=== PATIENT | male | born 1985 | race African-American/Black ===

== ENCOUNTER 2019-08-11 04:50 | Inpatient (IN) | payer MEDICAID ==
[~2019-08-11] VITALS: Ht 175.3 cm; Wt 66.5 kg
[2019-08-11] MEDS ORDERED: HALOPERIDOL 5 MG TABLET PO PRN (10:00)
[2019-08-11] MEDS ORDERED: ZOLPIDEM TARTRATE 10 MG TABLET PO PRN (10:00)
[2019-08-11] MEDS ORDERED: LORazepam 2 MG TABLET PO PRN (10:00)
[2019-08-11] MEDS ORDERED: CloNIDine HCL 0.1 MG TABLET PO PRN (10:30)
[2019-08-11] MEDS ORDERED: DOCUSATE SODIUM 100 MG CAPSULE PO PRN (10:30)
[2019-08-11] MEDS ORDERED: ONDANSETRON HCL 4 MG TABLET PO PRN (10:30)
[2019-08-11] MEDS ORDERED: PETROLATUM,WHITE 28 GM JELLY TP PRN (10:30)
[2019-08-11] MEDS ORDERED: GuaiFENesin/D-METHORPHAN [SUGAR-FREE] 200-20MG/10 ML SYRUP UDCUP PO PRN (10:30)
[2019-08-11] MEDS ORDERED: MAGNESIUM HYDROXIDE SUSPENSION 30 ML UDCUP PO PRN (10:30)
[2019-08-11] MEDS ORDERED: IBUPROFEN 400 MG TABLET PO PRN (10:30)
[2019-08-11] MEDS ORDERED: ACETAMINOPHEN 325 MG TABLET PO PRN (10:30)
[2019-08-11] MEDS ORDERED: MAG HYDROX/AL HYDROX/SIMETH ES 30 ML SUSPENSION UDCUP PO PRN (10:30)
[2019-08-11] MEDS ORDERED: ALBUTEROL SULFATE HFA 90 MCG/PUFF 8 GM INHALER IH PRN (10:30)
[2019-08-11] MEDS ORDERED: LOPERAMIDE HCL 2 MG CAPSULE PO PRN (10:30)
[2019-08-11] MEDS ORDERED: NICOTINE 14 MG/24 HOUR PATCH TD PRN (10:30)
[2019-08-11 12:15] VITALS: BP 115/62
[2019-08-11 16:00] VITALS: BP 122/76
[2019-08-12] MEDS ORDERED: DOCUSATE SODIUM 100 MG CAPSULE PO PRN (08:00)
[2019-08-12] MEDS ORDERED: IBUPROFEN 400 MG TABLET PO PRN (08:00)
[2019-08-12] MEDS ORDERED: MAGNESIUM HYDROXIDE SUSPENSION 30 ML UDCUP PO PRN (08:00)
[2019-08-12] MEDS ORDERED: ONDANSETRON HCL 4 MG TABLET PO PRN (08:00)
[2019-08-12] MEDS ORDERED: ALBUTEROL SULFATE HFA 90 MCG/PUFF 8 GM INHALER IH PRN (08:00)
[2019-08-12] MEDS ORDERED: PETROLATUM,WHITE 28 GM JELLY TP PRN (08:00)
[2019-08-12] MEDS ORDERED: CloNIDine HCL 0.1 MG TABLET PO PRN (08:00)
[2019-08-12] MEDS ORDERED: LOPERAMIDE HCL 2 MG CAPSULE PO PRN (08:00)
[2019-08-12] MEDS ORDERED: ACETAMINOPHEN 325 MG TABLET PO PRN (08:00)
[2019-08-12] MEDS ORDERED: GuaiFENesin/D-METHORPHAN [SUGAR-FREE] 200-20MG/10 ML SYRUP UDCUP PO PRN (08:00)
[2019-08-12] MEDS ORDERED: MAG HYDROX/AL HYDROX/SIMETH ES 30 ML SUSPENSION UDCUP PO PRN (08:00)
[2019-08-12] MEDS ORDERED: NICOTINE 14 MG/24 HOUR PATCH TD PRN (08:00)
[2019-08-12] MEDS: OLANZapine 5 MG TABLET PO SCH ×2 (10:30→20:45)
[2019-08-12] MEDS: SERTRALINE HCL 50 MG TABLET PO SCH (10:30)
[2019-08-12 16:35] VITALS: BP 121/67
[2019-08-13 05:48] VITALS: BP 143/68
[2019-08-13 08:29] VITALS: BP 121/74
[2019-08-13] MEDS: OLANZapine 5 MG TABLET PO SCH ×2 (09:43→20:50)
[2019-08-13] MEDS: SERTRALINE HCL 50 MG TABLET PO SCH (09:43)
[2019-08-13] MEDS ORDERED: TraMADol HCL 50 MG TABLET PO PRN (10:15)
[2019-08-13 16:24] VITALS: BP 117/60
[2019-08-14 05:22] VITALS: BP 116/76
[2019-08-14] MEDS: OLANZapine 5 MG TABLET PO SCH ×2 (09:26→21:00)
[2019-08-14] MEDS: SERTRALINE HCL 50 MG TABLET PO SCH (09:26)
[2019-08-14 09:29] VITALS: BP 115/71
[2019-08-14 16:16] VITALS: BP 128/71
[2019-08-15 05:35] VITALS: BP 118/76
[2019-08-15 08:17] VITALS: BP 121/73
[2019-08-15] MEDS: OLANZapine 5 MG TABLET PO SCH ×2 (09:07→21:01)
[2019-08-15] MEDS: SERTRALINE HCL 50 MG TABLET PO SCH (09:07)
[2019-08-15 16:15] VITALS: BP 132/68
[2019-08-16 00:43] VITALS: BP 141/90
[2019-08-16 08:28] VITALS: BP 127/72
[2019-08-16] MEDS: OLANZapine 5 MG TABLET PO SCH (09:16)
[2019-08-16] MEDS: SERTRALINE HCL 50 MG TABLET PO SCH (09:16)
== END 2019-08-16 13:30 | disposition home or self-care (01) | DRG 750 ==
LOC: EMS 04:50 → B3A 10:27
DX: F25.0 Schizoaffective disorder, bipolar type (principal); G93.40 Encephalopathy, unspecified; I95.9 Hypotension, unspecified; Z59.0 Homelessness; Z79.899 Other long term (current) drug therapy

== ENCOUNTER 2019-09-07 12:13 | Inpatient (IN) | payer MEDICAID ==
[2019-09-07] MEDS ORDERED: SERT50TA12 PO (14:13)
[2019-09-07] MEDS ORDERED: OLAN5TAB2 PO (14:13)
[2019-09-07] MEDS ORDERED: HALOPERIDOL 5 MG TABLET PO PRN (15:45)
[2019-09-07 16:00] VITALS: BP 133/68
[2019-09-07 17:22] VITALS: BP 133/68
[2019-09-07] MEDS: OLANZapine 5 MG TABLET PO SCH (20:29)
[2019-09-08] MEDS: OLANZapine 5 MG TABLET PO SCH ×2 (08:59→20:19)
[2019-09-08] MEDS: SERTRALINE HCL 50 MG TABLET PO SCH (08:59)
[2019-09-08 12:46] VITALS: BP 117/56
[2019-09-08] MEDS ORDERED: MAGNESIUM HYDROXIDE SUSPENSION 30 ML UDCUP PO PRN (16:15)
[2019-09-08] MEDS ORDERED: DOCUSATE SODIUM 100 MG CAPSULE PO PRN (16:15)
[2019-09-08] MEDS ORDERED: NICOTINE 14 MG/24 HOUR PATCH TD PRN (16:15)
[2019-09-08] MEDS ORDERED: ONDANSETRON HCL 4 MG TABLET PO PRN (16:15)
[2019-09-08] MEDS ORDERED: ALBUTEROL SULFATE HFA 90 MCG/PUFF 8 GM INHALER IH PRN (16:15)
[2019-09-08] MEDS ORDERED: LOPERAMIDE HCL 2 MG CAPSULE PO PRN (16:15)
[2019-09-08] MEDS ORDERED: GuaiFENesin/D-METHORPHAN [SUGAR-FREE] 200-20MG/10 ML SYRUP UDCUP PO PRN (16:15)
[2019-09-08] MEDS ORDERED: PETROLATUM,WHITE 28 GM JELLY TP PRN (16:15)
[2019-09-08] MEDS ORDERED: MAG HYDROX/AL HYDROX/SIMETH ES 30 ML SUSPENSION UDCUP PO PRN (16:15)
[2019-09-08] MEDS ORDERED: IBUPROFEN 400 MG TABLET PO PRN (16:15)
[2019-09-08] MEDS ORDERED: ACETAMINOPHEN 325 MG TABLET PO PRN (16:15)
[2019-09-08] MEDS ORDERED: CloNIDine HCL 0.1 MG TABLET PO PRN (16:15)
[2019-09-08 16:25] VITALS: BP 115/60
[2019-09-09 04:22] VITALS: BP 105/72
[2019-09-09] MEDS: OLANZapine 5 MG TABLET PO SCH ×2 (09:00→20:40)
[2019-09-09] MEDS: SERTRALINE HCL 50 MG TABLET PO SCH (09:00)
[2019-09-09 09:24] VITALS: BP 111/66
[2019-09-09] MEDS ORDERED: DiphenhydrAMINE HCL 50 MG/ML VIAL ONE ×2 (13:32→20:39)
[2019-09-09] MEDS ORDERED: HALOPERIDOL LACTATE 5 MG/ML VIAL ONE ×2 (13:32→20:40)
[2019-09-09] MEDS ORDERED: LORazepam 2 MG/ML VIAL ONE ×2 (13:32→20:39)
[2019-09-09 16:25] VITALS: BP 132/63
[2019-09-09] MEDS ORDERED: HALOPERIDOL LACTATE 5 MG/ML VIAL IM ONE (20:45)
[2019-09-09] MEDS ORDERED: DiphenhydrAMINE HCL 50 MG/ML VIAL IM ONE (20:45)
[2019-09-09] MEDS ORDERED: LORazepam 2 MG/ML VIAL IM ONE (20:45)
[2019-09-10 01:17] VITALS: BP 121/78
[2019-09-10 08:43] LABS: BASOPHILS % (AUTO) 0.5 % (0.0-2.0); EOSINOPHILS % (AUTO) 2.6 % (1.0-6.0); HEMATOCRIT 39.6 % (41-53); HEMOGLOBIN 13.4 g/dL (13.5-17.5); LYMPHOCYTES # (AUTO) 1.1 K/uL (1.0-4.8); LYMPHOCYTES % (AUTO) 30.9 % (22.0-44.0); MEAN CORPUSCULAR HEMOGLOBIN 33.8 pg (26.0-34.0); MEAN CORPUSCULAR HGB CONC 33.9 G/dL (31.0-37.0); MEAN CORPUSCULAR VOLUME 100 fL (80-100); MONOCYTES # (AUTO) 0.4 K/uL (0.1-1.0); MONOCYTES % (AUTO) 11.2 % (2.0-9.0); NEUTROPHILS % (AUTO) 54.8 % (40.0-70.0); PLATELET COUNT (AUTO) 195 K/uL (150-450); RED BLOOD CELL COUNT(AUTO) 3.96 MIL/uL (4.50-5.90); RED CELL DISTRIBUTION WIDTH 12.9 % (11.5-14.5)
[2019-09-10 08:50] VITALS: BP 126/71
[2019-09-10] MEDS: SERTRALINE HCL 50 MG TABLET PO SCH (09:00)
[2019-09-10] MEDS: OLANZapine 5 MG TABLET PO SCH ×2 (09:00→21:19)
[2019-09-10 09:03] LABS: HEMOGLOBIN A1C 4.4 % (3.8-5.6)
[2019-09-10 09:21] LABS: ALANINE AMINOTRANSFERASE 24 U/L (12-78); ALBUMIN 3.4 g/dL (3.4-5.0); ALKALINE PHOSPHATASE 57 U/L (46-116); ANION GAP 7 mmol/L (8-16); ASPARTATE AMINOTRANSFERASE 34 U/L (15-37); BILIRUBIN,TOTAL 0.7 mg/dL (0.1-1.0); CALCIUM, TOTAL 8.4 mg/dL (8.8-10.5); CARBON DIOXIDE 29 mmol/L (22-29); CHLORIDE 102 mmol/L (98-107); CHOL/HDL RATIO 2.5 (4.2-7.3); CHOLESTEROL 107 mg/dL (131-200); CREATININE 0.92 mg/dL (0.60-1.30); FREE T4 (FREE THYROXINE) 0.89 ng/dL (0.76-1.46); GLOMERULAR FILTR. RATE CALC > 60 mL/min (>60); GLUCOSE,RANDOM 81 mg/dL (70-110); HDL CHOLESTEROL 43 mg/dL (40-60); LDL CHOL (CALC.) 52 mg/dL (0-130); POTASSIUM 3.6 mmol/L (3.5-5.1); SODIUM SERUM 138 mmol/L (136-145); THYROID STIMULATING HORMONE 0.66 uIU/mL (0.36-3.74); TOTAL PROTEIN, SERUM 6.5 g/dL (6.4-8.2); TRIGLYCERIDES 60 mg/dL (15-150); UREA NITROGEN, BLOOD 14 mg/dL (7-18)
[2019-09-10 16:18] VITALS: BP 119/69
[2019-09-11 01:00] VITALS: BP 116/72
[2019-09-11] MEDS: OLANZapine 5 MG TABLET PO SCH ×2 (09:00→21:00)
[2019-09-11] MEDS: SERTRALINE HCL 50 MG TABLET PO SCH (09:00)
[2019-09-11] MEDS ORDERED: LORazepam 2 MG/ML VIAL ONE (20:18)
[2019-09-11] MEDS ORDERED: DiphenhydrAMINE HCL 50 MG/ML VIAL ONE (20:19)
[2019-09-11] MEDS ORDERED: HALOPERIDOL LACTATE 5 MG/ML VIAL ONE (20:19)
[2019-09-11] MEDS ORDERED: DiphenhydrAMINE HCL 50 MG/ML VIAL IM ONE (20:30)
[2019-09-11] MEDS ORDERED: HALOPERIDOL LACTATE 5 MG/ML VIAL IM ONE (20:30)
[2019-09-11] MEDS ORDERED: LORazepam 2 MG/ML VIAL IM ONE (20:30)
[2019-09-12 08:02] VITALS: BP 124/74
[2019-09-12] MEDS: OLANZapine 5 MG TABLET PO SCH ×2 (09:00→20:07)
[2019-09-12] MEDS: SERTRALINE HCL 50 MG TABLET PO SCH (09:00)
[2019-09-12 16:00] VITALS: BP 108/60
[2019-09-12] MEDS: LORazepam 2 MG TABLET PO PRN (20:07)
[2019-09-13 06:00] VITALS: BP 131/75
[2019-09-13] MEDS: OLANZapine 5 MG TABLET PO SCH ×3 (08:05→20:08)
[2019-09-13] MEDS: SERTRALINE HCL 50 MG TABLET PO SCH ×2 (08:06→09:00)
[2019-09-13 08:27] VITALS: BP 115/83
[2019-09-13 16:02] VITALS: BP 118/85
[2019-09-13] MEDS: LORazepam 2 MG TABLET PO PRN (16:10)
[2019-09-14] MEDS ORDERED: LORazepam 2 MG/ML VIAL IM ONE (02:00)
[2019-09-14] MEDS ORDERED: DiphenhydrAMINE HCL 50 MG/ML VIAL IM ONE (02:00)
[2019-09-14] MEDS ORDERED: HALOPERIDOL LACTATE 5 MG/ML VIAL IM ONE (02:00)
[2019-09-14 08:11] VITALS: BP 125/90
[2019-09-14] MEDS: SERTRALINE HCL 50 MG TABLET PO SCH (08:51)
[2019-09-14] MEDS: OLANZapine 5 MG TABLET PO SCH ×2 (08:51→20:08)
[2019-09-14 15:46] VITALS: BP 136/76
[2019-09-15 03:49] VITALS: BP 122/72
[2019-09-15] MEDS: SERTRALINE HCL 50 MG TABLET PO SCH (08:25)
[2019-09-15] MEDS: OLANZapine 5 MG TABLET PO SCH ×2 (08:25→20:03)
[2019-09-15 08:40] VITALS: BP 127/76
[2019-09-15] MEDS: LORazepam 2 MG TABLET PO PRN ×3 (15:44→21:20)
[2019-09-15 16:01] VITALS: BP 120/66
[2019-09-15] MEDS: ZOLPIDEM TARTRATE 10 MG TABLET PO PRN (20:03)
[2019-09-16 03:46] VITALS: BP 119/77
[2019-09-16 08:01] VITALS: BP 124/76
[2019-09-16] MEDS: OLANZapine 5 MG TABLET PO SCH ×2 (08:34→20:51)
[2019-09-16] MEDS: SERTRALINE HCL 50 MG TABLET PO SCH (08:34)
[2019-09-16 16:35] VITALS: BP 132/84
[2019-09-17 08:26] VITALS: BP 145/88
[2019-09-17] MEDS: OLANZapine 5 MG TABLET PO SCH ×2 (09:00→21:00)
[2019-09-17] MEDS: SERTRALINE HCL 50 MG TABLET PO SCH (09:00)
[2019-09-17 16:00] VITALS: BP 133/83
[2019-09-17] MEDS: ZOLPIDEM TARTRATE 10 MG TABLET PO PRN (22:12)
[2019-09-18 06:00] VITALS: BP 124/69
[2019-09-18] MEDS: SERTRALINE HCL 50 MG TABLET PO SCH (09:00)
[2019-09-18] MEDS: OLANZapine 5 MG TABLET PO SCH ×2 (09:00→20:28)
[2019-09-18] MEDS ORDERED: TraMADol HCL 50 MG TABLET PO PRN (09:15)
[2019-09-18] MEDS ORDERED: DiphenhydrAMINE HCL 25 MG CAPSULE PO ONE (09:15)
[2019-09-18] MEDS: LORazepam 2 MG TABLET PO PRN (13:38)
[2019-09-18] MEDS ORDERED: DiphenhydrAMINE HCL 50 MG/ML VIAL IM ONE (14:45)
[2019-09-18] MEDS ORDERED: LORazepam 2 MG/ML VIAL IM ONE (14:45)
[2019-09-18] MEDS ORDERED: HALOPERIDOL LACTATE 5 MG/ML VIAL IM ONE (14:45)
[2019-09-18 16:31] VITALS: BP 125/84
[2019-09-19] MEDS: SERTRALINE HCL 50 MG TABLET PO SCH (08:44)
[2019-09-19] MEDS: LORazepam 2 MG TABLET PO PRN (08:44)
[2019-09-19] MEDS: OLANZapine 5 MG TABLET PO SCH (08:44)
[2019-09-19 09:11] VITALS: BP 125/70
[2019-09-19] MEDS ORDERED: SERT50TA12 PO (15:05)
[2019-09-19] MEDS ORDERED: OLAN5TAB27 PO (15:05)
== END 2019-09-19 16:45 | disposition home or self-care (01) | DRG 750 ==
LOC: B2S 15:47 → B3A 09-11 20:31
DX: F25.0 Schizoaffective disorder, bipolar type (principal); I95.9 Hypotension, unspecified; D72.819 Decreased white blood cell count, unspecified; F41.9 Anxiety disorder, unspecified; F10.10 Alcohol abuse, uncomplicated; F19.10 Other psychoactive substance abuse, uncomplicated; F99 Mental disorder, not otherwise specified; Z79.899 Other long term (current) drug therapy; Z59.0 Homelessness
CPT/HCPCS: 83036; 84439; 84443; 86592; J1200; J1630; J2060